=== PATIENT | female | born 1990 | race Caucasian/White ===

== ENCOUNTER 2016-12-23 17:27 | Emergency (ER) | payer MEDICAID ==
[~2016-12-23] VITALS: Ht 152.4 cm; Wt 56.0 kg
[2016-12-23 17:32] VITALS: Ht 152.4 cm; Wt 56.0 kg
[2016-12-23 18:58] LABS: URINE BLOOD (Dip) POC Trace-intact (NEGATIVE)
[2016-12-23 19:33] LABS: ADD SCAN DIFF NO
[2016-12-23 19:40] LABS: BASOPHILS % 0.2 % (0.0-2.0); EOSINOPHILS # 0.1 10^3/ul (0.0-0.5); EOSINOPHILS % 0.9 % (0.0-7.0); HEMATOCRIT 41.8 % (37.0-47.0); HEMOGLOBIN 13.3 g/dl (12.0-16.0); LYMPHOCYTES # 1.9 10^3/ul (0.8-2.9); LYMPHOCYTES % 33.3 % (15.0-51.0); MEAN CORPUSCULAR HEMOGLOBIN 27.5 pg (29.0-33.0); MEAN CORPUSCULAR HGB CONC 31.8 g/dl (32.0-37.0); MEAN CORPUSCULAR VOLUME 86.5 fl (82.0-101.0); MONOCYTE # 0.6 10^3/ul (0.3-0.9); MONOCYTES % 9.7 % (0.0-11.0); NEUTROPHIL # 3.2 10^3/ul (1.6-7.5); NEUTROPHILS % 55.6 % (39.0-77.0); PLATELET COUNT 229 10^3/UL (140-415); RED BLOOD COUNT 4.83 10^6/ul (4.20-5.40); RED CELL DISTRIBUTION WIDTH 14.1 % (11.5-14.5); WHITE BLOOD COUNT 5.8 10^3/ul (4.8-10.8)
[2016-12-23 19:44] LABS: ADD UMIC YES; URINE BILIRUBIN (Dip) NEGATIVE (NEGATIVE); URINE BLOOD (Dip) TRACE (NEGATIVE); URINE COLOR LT. YELLOW (YELLOW); URINE GLUCOSE (Dip) NEGATIVE (NEGATIVE); URINE KETONES (Dip) TRACE (NEGATIVE); URINE LEUKOCYTE ESTERASE (Dip) 1+ (NEGATIVE); URINE NITRITE (Dip) NEGATIVE (NEGATIVE); URINE TOTAL PROTEIN (Dip) NEGATIVE (NEGATIVE); URINE UROBILINOGEN (Dip) 0.2 E.U./dL (0.1-1.0)
[2016-12-23 19:59] LABS: SQUAMOUS EPITHELIAL CELL,UR MANY; URINE RBCS 0-2 /HPF (0)
[2016-12-23 20:00] LABS: BACTERIA,URINE FEW
--- NOTE | 2016-12-23 20:28 | RADRPT ---
PROCEDURE: US OB. CLINICAL INDICATION: Pelvic pain. TECHNIQUE: Multiple sonographic images of the pelvis were obtained. Transabdominal and transvagin al views of the pelvis are available for review. The images were reviewed on a PACS workstation. COMPARISON: No prior studies are available for comparison. FINDINGS: A single live intrauterine is identified. heart rate is 126 beats per minute. The cr own-rump length is 4.4 mm which corresponds to 6 weeks 1 day gestational age by ultrasound criteria. Estimated date of delivery is 08/17/2017 by crown rump length. No subchorionic hemorrhage is iden tified. Multiple left ovarian simple cysts are present, measuring up to 3.9 x 2.9 x 2.9 cm. The ovar ies are otherwise unremarkable with vascular flow.. There is no adnexal mass or free fluid. IMPRESSION: 1. Single live intrauterine gestation of approximately 6 weeks 1 day. 2. No subchorionic hemorrhage. 3. Simple left ovarian cysts. RPTAT: [facility]VK .Tarun Tamez MD, Date Time Electronically viewed and signed by .Tarun Tamez MD, MD on 12/23/2016 20:28 .K/
--- NOTE | 2016-12-23 20:35 | RADRPT ---
PROCEDURE: US Abdomen. CLINICAL INDICATION: abdominal pain TECHNIQUE: Multiple real-time images were acquired of the patient's right upper quadrant abdomen a nd retroperitoneum utilizing a high resolution transducer. COMPARISON: None FINDINGS: The liver demonstrates normal echogenicity. The liver is normal in size and no focal solid lesions are seen. The liver measures 14.4 cm in length. The portal vein is patent with normal direction of f low. No intrahepatic biliary dilatation is seen. No gallstones are identified within the gallbladder. There is no pericholecystic fluid or gallbladd er wall thickening. The common bile duct measures 4 mm in maximal dimension. The visualized portions of the pancreas are unremarkable. The tail of the pancreas is not seen. No free fluid is identified. The right kidney is normal in size, and demonstrate normal echogenicity and cortical thickness. The right kidney measures 11.1 cm in long dimension. There is no evidence of hydronephrosis. There are no kidney stones. RPTAT: AA IMPRESSION: Unremarkable right upper quadrant abdominal ultrasound. .David Whittaker MD, Date Time Electronically viewed and signed by .David Whittaker MD, MD on 12/23/2016 20:34 .S/
--- NOTE | 2016-12-23 21:36 | ERD ---
ER Documentation Chief Complaint Date/Time DATE: 12/23/16 TIME: 21:28 Chief Complaint 7 WEEK WITH PELVIC PAIN HPI 26-year-old female A1, last menstrual period 11/09/2016 presented to the ED complaining of a 3-4 day history of mild, crampy, generalized abdominal pain which localizes to the right upper quadrant. No nausea, vomiting, diarrhea or constipation. She was seen at a local clinic and referred to the ED to rule out ectopic . She denies vaginal bleeding or discharge. No dysuria, polyuria, hematuria or flank pain. No leg pain or swelling. Denies headache or neck pain. No fevers or chills. ROS All systems reviewed and are negative except as per history of present illness. PMhx/Soc Reviewed in chart. As per HPI. Medical and Surgical Hx: pt denies Medical Hx, pt denies Surgical Hx Hx Neurological Disorder: No Hx Respiratory Disorders: No Hx Cardiac Disorders: No Hx Psychiatric Problems: No Hx Miscellaneous Medical Probl: Yes (Ectopic ) Hx Alcohol Use: No Hx Substance Use: No Hx Tobacco Use: No Smoking Status: Never smoker FmHx No stroke or cancer. No diabetes. Physical Exam Vitals Vital Signs Date Time Temp Pulse Resp B/P Pulse Ox O2 Delivery O2 Flow Rate FiO2 12/23/16 17:32 98.1 68 20 109/59 99 Physical Exam Const: Alert, mild distress, anxious. Head: Atraumatic Eyes: Normal Conjunctiva ENT: Normal External Ears, Nose and Mouth. Neck: Full range of motion. Nontender. Resp: Clear to auscultation bilaterally Cardio: Regular rate and rhythm, no murmurs Abd: Soft, non tender, non distended. Normal bowel sounds. No rebound or guarding. : Pelvic exam deferred Skin: No petechiae or rashes Back: No midline or flank tenderness Ext: No cyanosis, or edema. No calf swelling or tenderness. Neur: Awake and alert Psych: Patient appears anxious but not depressed. Result Diagram: 12/23/161914 Results 24 hrs Laboratory Tests Test 12/23/16 18:59 12/23/16 19:10 12/23/16 19:15 Bedside Urine pH (LAB) 7.0 Bedside Urine Protein (LAB) Trace Bedside Urine Glucose (UA) Negative Bedside Urine Ketones (LAB) Trace Bedside Urine Blood Trace-intact Bedside Urine Nitrite (LAB) Negative Bedside Urine Leukocyte Esterase (L 1+ Urine Color LT. YELLOW Urine Clarity CLEAR Urine pH 7.0 Urine Specific [place] 1.015 Urine Ketones TRACE Urine Nitrite NEGATIVE Urine Bilirubin NEGATIVE Urine Urobilinogen 0.2 E.U./dL Urine Leukocyte Esterase 1+ Urine Microscopic RBC 0-2/HPF Urine Microscopic WBC 2-5/HPF Urine Squamous Epithelial Cells MANY Urine Bacteria FEW Urine Hemoglobin TRACE Urine Glucose NEGATIVE% Urine Total Protein NEGATIVE White Blood Count 5.810^3/ul Red Blood Count 4.8310^6/ul Hemoglobin 13.3g/dl Hematocrit 41.8% Mean Corpuscular Volume 86.5fl Mean Corpuscular Hemoglobin 27.5pg Mean Corpuscular Hemoglobin Concent 31.8g/dl Red Cell Distribution Width 14.1% Platelet Count 41924^3/UL Mean Platelet Volume 11.0fl Neutrophils % 55.6% Lymphocytes % 33.3% Monocytes % 9.7% Eosinophils % 0.9% Basophils % 0.2% Nucleated Red Blood Cells % 0.0/100WBC Neutrophils # 3.210^3/ul Lymphocytes # 1.910^3/ul Monocytes # 0.610^3/ul Eosinophils # 0.110^3/ul Basophils # 0.010^3/ul Nucleated Red Blood Cells # 0.010^3/ul Beta HCG, Quantitative 20953.0mIU/ml PROCEDURE: US OB. CLINICAL INDICATION: Pelvic pain. TECHNIQUE: Multiple sonographic images of the pelvis were obtained. Transabdominal and transvaginal views of the pelvis are available for review. The images were reviewed on a PACS workstation. COMPARISON: No prior studies are available for comparison. FINDINGS: A single live intrauterine is identified. heart rate is 126 beats per minute. The crown-rump length is 4.4 mm which corresponds to 6 weeks 1 day gestational age by ultrasound criteria. Estimated date of delivery is by crown rump length. No subchorionic hemorrhage is identified. Multiple left ovarian simple cysts are present, measuring up to 3.9 x 2.9 x 2.9 cm. The ovaries are otherwise unremarkable with vascular flow.. There is no adnexal mass or free fluid. IMPRESSION: 1. Single live intrauterine gestation of approximately 6 weeks 1 day. 2. No subchorionic hemorrhage. 3. Simple left ovarian cysts. RPTAT: HMVK .Tarun Tamez MD, Date Time Electronically viewed and signed by .Tarun Tamez MD, MD on 12/23/2016 20:28 .K/ ROCEDURE: US Abdomen. CLINICAL INDICATION: abdominal pain TECHNIQUE: Multiple real-time images were acquired of the patient's right upper quadrant abdomen and retroperitoneum utilizing a high resolution transducer. COMPARISON: None FINDINGS: The liver demonstrates normal echogenicity. The liver is normal in size and no focal solid lesions are seen. The liver measures 14.4 cm in length. The portal vein is patent with normal direction of flow. No intrahepatic biliary dilatation is seen. No gallstones are identified within the gallbladder. There is no pericholecystic fluid or gallbladder wall thickening. The common bile duct measures 4 mm in maximal dimension. The visualized portions of the pancreas are unremarkable. The tail of the pancreas is not seen. No free fluid is identified. The right kidney is normal in size, and demonstrate normal echogenicity and cortical thickness. The right kidney measures 11.1 cm in long dimension. There is no evidence of hydronephrosis. There are no kidney stones. RPTAT: AA IMPRESSION: Unremarkable right upper quadrant abdominal ultrasound. .David Whittaker MD, Date Time Electronically viewed and signed by .David Whittaker MD, MD on 12/23/2016 20: 34 Procedures/MDM DOCUMENTS REVIEWED: ED nurse, no prior records REEXAMINATION/REEVALUATION: Time:21:00. Doing well. Abdomen soft nontender. MEDICAL DECISION MAKIN-year-old female A1, last menstrual period 11/09 presented to the ED complaining of a 3-4 day history of mild, crampy, generalized abdominal pain which localizes to the right upper quadrant. Ultrasound reveals a viable 6 week intrauterine . No ultrasound evidence of cholelithiasis or cholecystitis. Abdominal exam is benign without rebound, guarding or other signs of peritonitis. Appendicitis is unlikely. No evidence of urinary tract infection or pyelonephritis. Stable for discharge precautionary instructions and outpatient follow-up as counseled. Pain, fever and bleeding precautions explained and understood. Counseled patient and family regarding diagnostic workup, diagnosis and need for followup. Understands to return to ED if symptoms recur, worsen or any other concerns. Departure Diagnosis: Primary Impression: Abdominal pain during intrauterine Additional Impression: with 6 completed weeks gestation Condition: Stable SUMAN CONTRERAS MD December 23, 2016 21:36
[2016-12-23 21:39] VITALS: BP 110/69; PULSE 68; RESP 18
== END 2016-12-23 21:41 | disposition home or self-care (01) ==
LOC: E/R 17:27
DX: O26.891 Other specified pregnancy related conditions, first trimester (principal); R10.84 Generalized abdominal pain; R10.2 Pelvic and perineal pain; Z3A.01 Less than 8 weeks gestation of pregnancy
CPT/HCPCS: 36415; 76705; 76801; 81001; 84702; 85025; 86900; 86901; Z7502; 81003

== ENCOUNTER 2017-07-22 01:45 | Observation (INO) | END 2017-07-22 15:04 | disposition home or self-care (01) ==

== ENCOUNTER 2017-07-30 17:40 | Inpatient (IN) | END 2017-08-02 12:20 | disposition home or self-care (01) | DRG 766 ==